=== PATIENT | female | born 1965 | race Caucasian/White ===

== ENCOUNTER 2018-05-12 17:32 | Emergency (ER) | payer MEDICAID ==
[~2018-05-12] VITALS: Ht 162.6 cm; Wt 91.8 kg
[~2018-05-12 17:32] MED LIST: CEPH500C5 PO; HYDR-569 PO
[2018-05-12 17:37] VITALS: BP 135/83
[2018-05-12] MEDS ORDERED: CEPH-571 PO (17:58)
[2018-05-12] MEDS ORDERED: TRAM50TA2 PO (17:58)
== END 2018-05-12 18:13 | disposition home or self-care (01) ==
LOC: ER 17:32
DX: L60.0 Ingrowing nail (principal); Z79.899 Other long term (current) drug therapy; Z98.890 Other specified postprocedural states
CPT/HCPCS: 99283

== ENCOUNTER 2018-10-18 16:54 | Emergency (ER) | payer MEDICAID ==
[~2018-10-18] VITALS: Ht 172.7 cm; Wt 92.0 kg
[~2018-10-18 16:54] MED LIST changes: +CEPH-571 PO; +HYDR-4383 PO; -HYDR-569 PO
[2018-10-18 17:42] LABS: CLARITY,URINE SLIGHTLY CLOUDY (Clear); COLOR,URINE YELLOW (Yellow); GLUCOSE, URINE NEGATIVE (Neg); KETONES,URINE TRACE mg/dl (Neg); LEUKOCYTE ESTERASE ,URINE SMALL (Neg); NITRITES, URINE NEGATIVE (Neg); OCCULT BLOOD,URINE NEGATIVE (Neg); PH,URINE 6.5 (4.8-8.0); PROTEIN,URINE NEGATIVE (Neg); URINE HCG NEGATIVE (NEG); UROBILINOGEN,URINE 0.2 E.U/dL (0.2-1.0)
[2018-10-18 17:44] LABS: UA COLLECTION TYPE CLN CATCH MIDSTREAM
[2018-10-18 17:44] LABS: BASOPHILS % (AUTO) 0.2 % (0-1); EOSINOPHILS # (AUTO) 0.1 X10'3 (0-0.9); EOSINOPHILS % (AUTO) 1.9 % (0-6); HEMATOCRIT 41.3 % (35.0-45.0); HEMOGLOBIN 14.2 g/dl (12.0-16.0); LYMPHOCYTES # (AUTO) 1.6 X10'3 (1.1-4.8); LYMPHOCYTES % (AUTO) 21.8 % (21-51); MEAN CORPUSCULAR HGB CONC 34.3 % (33.0-36.5); MEAN CORPUSCULAR VOLUME 90.4 FL (78-98); MEAN PLATELET VOLUME 8.4 FL (7.4-10.4); MONOCYTES # (AUTO) 0.3 X10'3 (0-0.9); NEUTROPHILS # (AUTO) 5.3 X10'3 (1.8-7.7); NEUTROPHILS % (AUTO) 72.1 % (42-75); PLATELET COUNT 338 X10'3 (140-440); RED BLOOD COUNT 4.57 X10'6 (4.20-5.60); RED CELL DISTRIBUTION WIDTH 13.4 % (11.5-14.5); WHITE BLOOD COUNT 7.4 X10'3 (4.5-11.0)
[2018-10-18 17:50] LABS: BACTERIA,URINE 1+ /HPF (Neg); MUCUS STRANDS MODERATE /LPF (Neg); RBC,URINE 0-2 /HPF (0-2); SQUAMOUS EPITHELIAL CELL,UR MODERATE /LPF (FEW)
[2018-10-18 17:59] LABS: PROTHROMBIN TIME 9.8 SECONDS (9.0-12.0)
[2018-10-18 18:04] VITALS: BP 142/82
[2018-10-18] MEDS ORDERED: ketorolac trometh inj. 60 MG/2 ML VIAL IM ONE (18:05)
[2018-10-18 18:06] LABS: ALBUMIN 3.9 G/DL (3.4-5.0); ALBUMIN/GLOBULIN RATIO 1.1 (1.1-1.5); ALKALINE PHOSPHATASE 107 IU/L (46-116); ANION GAP 10 (8-16); BILIRUBIN,TOTAL 0.3 MG/DL (0.1-1.0); BLOOD UREA NITROGEN 17 MG/DL (7-18); BUN/CREATININE RATIO 17.5 (6.6-38.0); CALCIUM 8.4 MG/DL (8.5-10.1); CHLORIDE 104 MMOL/L (99-107); CREATININE 0.97 MG/DL (0.40-0.90); SODIUM 143 MMOL/L (135-145); TOTAL CARBON DIOXIDE 28.6 MMOL/L (24-32); TOTAL PROTEIN 7.6 G/DL (6.4-8.2); eGFR 60 ML/MIN
[2018-10-18] MEDS ORDERED: ACET-3067 PO (18:06)
[2018-10-18] MEDS ORDERED: IBUP-1984 PO (18:06)
[2018-10-18] MEDS ORDERED: CYCL-1 PO (18:06)
[2018-10-18 18:09] LABS: GLUCOSE 137 MG/DL (70-104); POTASSIUM 3.7 MMOL/L (3.5-5.1)
[2018-10-18 18:23] LABS: ALANINE AMINOTRANSFERASE 39 U/L (12-78)
[2018-10-18 18:35] LABS: ASPARTATE AMINO TRANSFERASE 28 U/L (10-37)
== END 2018-10-18 18:28 | disposition home or self-care (01) ==
LOC: ER 16:55
DX: M54.5 Low back pain (principal); M62.830 Muscle spasm of back; Z98.890 Other specified postprocedural states
CPT/HCPCS: 36415; 80053; 81001; 81025; 85025; 85610; 87088; 96372; 99283; J1885

== ENCOUNTER 2020-12-24 14:20 | Emergency (ER) | payer MEDICAID ==
[~2020-12-24 14:20] MED LIST changes: -CEPH500C5 PO; +CYCL-1 PO
== END 2020-12-24 15:20 | disposition left against medical advice (07) ==
LOC: ER 14:21
DX: M25.569 Pain in unspecified knee (principal); Z53.21 Procedure and treatment not carried out due to patient leaving prior to being seen by health care provider